=== PATIENT | female | born 1940 | race Caucasian/White ===

== ENCOUNTER 2016-12-23 11:57 | Emergency (ER) | payer OTHER ==
[~2016-12-23] VITALS: Ht 160 cm; Wt 68.9 kg
[2016-12-23] MEDS ORDERED: AMLODIPINE BESYL5 M1 PO (12:16)
[2016-12-23] MEDS ORDERED: LATANOPROST2.5 ML OPH (12:16)
[2016-12-23] MEDS ORDERED: VALSARTAN-HCTZ1 EACH PO (12:16)
[2016-12-23] MEDS ORDERED: TIMOLOL MALEATE5 M4 OD (12:16)
[2016-12-23] MEDS ORDERED: METFORMIN HCL850 M1 PO (12:17)
[2016-12-23] MEDS ORDERED: DORZOLAMIDE-TIM10 ML OPH (12:17)
[2016-12-23] MEDS ORDERED: LEVOTHYROXINE25 MCG PO (12:18)
--- NOTE | 2016-12-23 12:59 | RADIOLOGY REPORT ---
EXAMINATION: XR PORTABLE CHEST CLINICAL INFORMATION: Syncope COMPARISON: CXR from 11/25/2010 TECHNIQUE: Portable AP view of the chest was obtained. FINDINGS: Lungs are slightly hypoinflated. Minimal discoid atelectasis is present within the lateral aspect of the inferior lingula. Otherwise, lungs are unremarkable. There is no pulmonary consolidation, edema or pleural effusion. Cardiac silhouette is normal in size. The mediastinal and hilar contours are normal. There is atherosclerotic calcification of the aortic arch. No acute skeletal findings. IMPRESSION: Cardiac silhouette is normal in size. No acute cardiopulmonary disease compared to 11/25/2010.
[2016-12-23 13:08] LABS: ABSOLUTE BASOPHIL COUNT 0 /CUMM (0.0-0.2); ABSOLUTE EOSINOPHIL COUNT 0.5 /CUMM (0.0-0.7); ABSOLUTE LYMPH COUNT 0.7 /CUMM (1.2-3.4); ABSOLUTE MONOCYTE COUNT 0.5 /CUMM (0.10-0.60); BASOPHIL % 0.1 % (0.0-2.0); EOSINOPHIL % 5.5 % (0-5); HEMATOCRIT 41.8 % (37-47); MEAN CORPUSCULAR HGB 31.9 PG (27.0-31.0); MEAN CORPUSCULAR HGB CONC 34.4 G/DL (33.0-37.0); MEAN CORPUSCULAR VOLUME 92.8 FL (81.0-99.0); MEAN PLATELET VOLUME 6.6 FL (7.4-10.4); PLATELET COUNT 225 /CUMM (130-400); RED BLOOD CELL CT 4.51 /CUMM (4.20-5.40); WHITE BLOOD CELL COUNT 8.7 /CUMM (4.8-10.8)
[2016-12-23 13:15] LABS: GRANULOCYTE % 80.3 % (42.2-75.2)
--- NOTE | 2016-12-23 13:39 | ED AMS/SEIZURE/WEAK/DIZZY ---
History of Present Illness General Chief Complaint: Syncope and Near-Syncope Stated Complaint: NEAR SYNCOPE Source: patient, family, old records Exam Limitations: no limitations Vital Signs & Intake/Output Vital Signs & Intake/Output Vital Signs Date Time Temp Pulse Resp B/P Pulse O2 O2 Flow FiO2 Ox Delivery Rate 12/23 1415 97.0 72 18 103/54 96 Room Air 12/23 1209 98 Room Air 12/23 1201 96.0 70 18 95/52 96 Room Air Allergies Coded Allergies: Penicillins (THROAT SWELLING 12/23/16) Reconcile Medications Amlodipine Besylate 5 MG TABLET 1 TAB PO DAILY HEART (Reported) Dorzolamide HCl/Timolol Maleat (Dorzolamide-Timolol Eye Drops) 22.3 MG-6.8 MG/ML DROPS 1 GTT OPH BID EYE (Reported) Latanoprost 0.005 % DROPS 1 GTT OPH QPM EYE (Reported) Levothyroxine Sodium (Unknown Strength) TABLET (Unknown Dose) PO DAILY AC THYROID (Reported) Metformin HCl 850 MG TABLET 1 TAB PO BID DM (Reported) Sulfamethoxazole/Trimethoprim (Bactrim Ds Tablet) 800 MG-160 MG TABLET 1 TAB PO BID uti Timolol Maleate 0.5 % DROPS 1 GTT OPH QPM EYE (Reported) Valsartan/Hydrochlorothiazide (Valsartan-Hctz 80-12.5 MG Tab) 80 MG-12.5 MG TABLET 1 TAB PO DAILY HEART (Reported) Triage Note: 76 Y/O FEMALE BIBA FROM DOCTORS OFFICE ([facility], [place]) FOR EVAL OF GENERAL WEAKNESS, NAUSEA, RASH TO BILATERAL LOWER EXTREMITIES AND NEAR SYNCOPE X 1 WEEK. PT STATES SHE WAS TREATED FOR A UTI LAST WEEK BUT WE FEELING BETTER. A FEW DAYS AGO BEGAN NOT FEELING WELL WITH GENERAL WEAKNESS AND DECREASED APPETITE. TODAY NOTICED FINE RED RASH TO BILATERAL LOWER EXTREMITIES. STATES SHE HAS HAD A "LITTLE" COUGH. AFEBRILE. MD MELENDEZ INTO EVAL. Triage Nurses Notes Reviewed? yes Onset: Last week Duration: day(s):, continues in ED, waxing and waning Timing: recent history Injury Environment: home Severity: moderate No Modifying Factors: none LMP (ages 10-50): post menopausal : No Patient currently breastfeeds: No HPI: One week prior to admission patient was started on antibiotics for urinary tract infection subsequently developing generalized red itchy rash. She also complains of periumbilical pain into her right into her back sharp moderate to severe times associated with anorexia fatigue. She was at her PMDs office feeling very weak unable to stay awake during her exam. She denies fever chills chest pain cough shortness breath headache dysuria bleeding Past History Travel History Traveled to [place] past 21 day No Medical History Any Pertinent Medical History? 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 No Review of Systems Review of Systems Constitutional: Reports: see HPI, malaise, weakness. EENTM: Reports: no symptoms. Respiratory: Reports: no symptoms. Cardiovascular: Reports: no symptoms. GI: Reports: see HPI, abdominal pain. Genitourinary: Reports: see HPI, dysuria. Musculoskeletal: Reports: no symptoms. Skin: Reports: see HPI, rash. Neurological/Psychological: Reports: no symptoms. Hematologic/Endocrine: Reports: no symptoms. Immunologic/Allergic: Reports: no symptoms. All Other Systems: Reviewed and Negative Physical Exam Physical Exam General Appearance: well developed/nourished, alert, awake, anxious, moderate distress, obese Head: atraumatic, normal appearance Eyes: Bilateral: normal appearance, PERRL, EOMI. Ears, Nose, Throat: normal pharynx, normal ENT inspection Neck: normal inspection, supple, full range of motion, no midline tenderness Respiratory: normal breath sounds, chest non-tender, no respiratory distress, quiet respiration, lungs clear Cardiovascular: regular rate/rhythm, normal peripheral pulses, norml femoral pulses equa Peripheral Pulses: 4+ carotid (R), 4+ carotid (L) Gastrointestinal: normal bowel sounds, soft, no organomegaly, tenderness (Mild right lower quadrant) Back: normal inspection, normal range of motion Extremities: normal range of motion, no ligament instability Neurologic/Psych: no motor/sensory deficits, awake, alert, oriented x 3, normal gait, normal mood/affect, stevedore hold II-XII nml as tested Reflexes: 2+: bicep (R), bicep (L). Skin: rash (generalized papular) Lymphatic: no anterior cervical petra Core Measures ACS in differential dx? No CVA/TIA Diagnosis: No Severe Sepsis Present: No Septic Shock Present: No Progress Differential Diagnosis: dehydration, electrolyte imbalance, hypoxia, pneumonia, UTI/pyelo Plan of Care: Orders Procedure Date/time Status LACTIC ACID 12/23 1516 Active Add-on Test (ER Only) 12/23 1511 Active EKG 12/23 1302 Active TOTAL TRIODOTHYROXINE 12/23 1258 Complete FREE T4 12/23 1258 Complete MISTAKE 12/23 121 Active URINALYSIS 12/23 121 Complete TSH REFLEX 12/23 121 Complete TROPONIN LEVEL 12/23 121 Complete LACTIC ACID 12/23 121 Complete COMPREHENSIVE METABOLIC PANEL 12/23 1215 Complete CBC WITHOUT DIFFERENTIAL 12/23 1215 Complete Current Medications Sig/[place] Start time Last Medication Dose Stop Time Status Admin Potassium Chloride 40 MEQ ONCE ONE 12/23 1515 UNVr (Klor) 12/23 1516 Laboratory Tests 12/23/16 1427: Urinalysis LIGHT H, Urine Color KOURTNEY, Urine Clarity HAZY H, Urine pH 6.0, Ur Specific [place] >= 1.030, Urine Protein 100 H, Urine Ketones TRACE H, Urine Nitrite NEG, Urine Bilirubin NEG@ICTO, Urine Urobilinogen 1.0, Ur Leukocyte Esterase MOD H, Ur Microscopic SEDIMENT EXAMINED, Urine RBC 3-5, Urine WBC 50- 75 H, Ur Epithelial Cells MOD H, Hyaline Casts 1-3 H, Granular Casts 1-3 H, Urine Mucus MOD H, Urine Hemoglobin NEG, Urine Glucose NEG 12/23/16 1258: Anion Gap 11, Estimated GFR 44 L, BUN/Creatinine Ratio 16.7, Glucose 168 H, Lactic Acid 2.5 H, Calcium 8.5, Total Bilirubin 0.7, AST 43 H, ALT 62 H, Alkaline Phosphatase 72, Troponin I < 0.01, Total Protein 6.0 L, Albumin 3.2 L , Globulin 2.8, Albumin/Globulin Ratio 1.1, Free T4 1.68, Total T3 0.53 L, TSH &T3 &Free T4 Intrp 6.200 H, CBC w Diff NO MAN DIFF REQ, RBC 4.51, MCV 92.8, MCH 31.9 H, RDW 14.0, MPV 6.6 L, Gran % 80.3 H, Lymphocytes % 8.3 L, Monocytes % 5.8, Eosinophils % 5.5 H, Basophils % 0.1, Absolute Granulocytes 7.0 H, Absolute Lymphocytes 0.7 L, Absolute Monocytes 0.5, Absolute Eosinophils 0.5, Absolute Basophils 0, PUBS MCHC 34.4 Diagnostic Imaging: Viewed by Me: CT Scan. Discussed w/RAD: CT Scan. Radiology Impression: 1. Nonobstructing 8 mm renal calculus. 2. No evidence of appendicitis. 3. No evidence of diverticulitis. CXR Impression: no acute abnormality Initial ED EKG: normal axis, normal intervals, normal p-waves, normal QRS complex, normal sinus rhythm, no ST T wave changes Rhythm Strip: normal sinus rhythm Departure Departure Time of Disposition: 1510 Disposition: HOME OR SELF CARE Condition: Stable Clinical Impression Primary Impression: Dehydration syndrome Secondary Impressions: Adverse reaction to drug, Hypokalemia, Renal colic Referrals: RUEL JOHNSON,LINDA (PCP/Family) ARLETTE JOHNSON MD Departure Forms: Customer Survey General Discharge Information Prescriptions: Current Visit Scripts Sulfamethoxazole/Trimethoprim (Bactrim Ds Tablet) 1 TAB PO BID #20 TAB
--- NOTE | 2016-12-23 14:59 | CT SCAN REPORT ---
EXAMINATION: CT ABDOMEN AND PELVIS WITHOUT CONTRAST CLINICAL INFORMATION: Right lower quadrant pain. COMPARISON: 02/07/2015 TECHNIQUE: Multidetector volumetric imaging was performed from the superior aspect of the liver through the pubic symphysis. Sagittal and coronal reformatted images were obtained on the technologist's workstation. DLP: 290.12 mGy-cm FINDINGS: LUNG BASES: Bibasilar atelectasis is present. Coronary artery calcifications are present. LIVER, GALLBLADDER, AND BILIARY TREE: The liver is normal in size, shape, and attenuation. No focal hepatic lesion or biliary ductal dilatation is present. The gallbladder is unremarkable with no evidence of radiopaque gallstones, gallbladder wall thickening, or obvious pericholecystic inflammatory changes. PANCREAS: Unremarkable. SPLEEN: Unremarkable. ADRENAL GLANDS: Unremarkable. KIDNEYS AND URETERS: The kidneys are normal in size, shape, and attenuation. There is a nonobstructing 8 mm left upper pole lobulated calculus seen. No hydronephrosis, or hydroureter seen. No perinephric stranding. BLADDER: Underfilled. GASTROINTESTINAL TRACT: The small and large bowel are unremarkable. The appendix or appendiceal stump is seen. There is no evidence to suggest the presence of appendicitis. ABDOMINAL WALL: There is a tiny periumbilical hernia seen containing only fat. LYMPH NODES: Normal. VASCULAR: Unremarkable. PELVIC VISCERA: Unremarkable. OSSEOUS STRUCTURES: Degenerative changes noted in the thoracic spine. IMPRESSION: 1. Nonobstructing 8 mm renal calculus. 2. No evidence of appendicitis. 3. No evidence of diverticulitis.
[2016-12-23] MEDS ORDERED: BACTRIM DS TAB1 EACH PO (15:11)
[2016-12-23] MEDS ORDERED: IBUPROFEN600 M1 PO (15:15)
[2016-12-23] MEDS ORDERED: ULTRAM50 M1 PO (15:15)
[2016-12-23 15:48] VITALS: BP 102/54
[2017-01-04] MEDS ORDERED: LEVOXYL88 MCG PO (16:08)
[2017-01-04] MEDS ORDERED: LIPITOR10 M1 PO (16:09)
[2017-01-04] MEDS ORDERED: DORZOLAMIDE HCL10 M1 OS (16:11)
[2017-01-04] MEDS ORDERED: ASPIRIN325 M2 PO (16:12)
== END 2016-12-23 15:55 ==
LOC: ERH 11:57
PROVIDERS: Emergency Medicine
DX: E86.0 Dehydration (principal); T36.95XA Adverse effect of unspecified systemic antibiotic, initial encounter; E87.6 Hypokalemia; N23 Unspecified renal colic
CPT/HCPCS: 74176; 81001; 87086; 93005; 93010; 96361; 96374; 96375; J1200

== ENCOUNTER → 2017-01-05 | Day surgery (SDC) | payer OTHER ==
[~2017-01-05] VITALS: Ht 160 cm; Wt 68.9 kg
[~2017-01-05] MED LIST: AMLODIPINE BESYL5 M1 PO; ASPIRIN325 M2 PO; BACTRIM DS TAB1 EACH PO; DORZOLAMIDE HCL10 M1 OS; DORZOLAMIDE-TIM10 ML OPH; IBUPROFEN600 M1 PO; LATANOPROST2.5 ML OPH; LEVOTHYROXINE25 MCG PO; LEVOXYL88 MCG PO; LIPITOR10 M1 PO; METFORMIN HCL850 M1 PO; TIMOLOL MALEATE5 M4 OD; ULTRAM50 M1 PO; VALSARTAN-HCTZ1 EACH PO
--- NOTE | 2017-01-05 15:36 | Operative Report ---
Operative/Inv Procedure Report Surgery Date: 01/05/17 Name of Procedure: Left renal ESWL, fluoroscopy. Pre-Operative Diagnosis: Left renal stone Post-Operative Diagnosis: Same Estimated Blood Loss: none Surgeon/Pyrotechnics Press Tender: ARLETTE JOHNSON MD Anesthesia: moderate sedation Complications: None Operative/Procedure Note Note: The patient was taken to the operating room and placed on the ESWL table in supine position. With the patient awake and participating, timeout was performed to confirm correct identity, procedure, laterality, anesthesia, and other pertinent tressa-operative information. After adequate anesthesia, the patient was positioned so that the patient's left flank was positioned over the table cut-out, overlying the dome of the treatment head. Once the patient was adequately sedated, fluoroscopy, as well as Renal ultrasound was used to locate the LEFT renal stone. Renal US confirmed the presence of the stone which measured it to be approximately 8 mm UP stone. The stone was faintly visible with fluoroscopy. Renal US revealed, no hydronephrosis, and no solid tumor, and presence of the stone. The position of the stone was optimized by using fluoroscopy in AP and oblique views;placing the stone within the ESWL c-arm crosshairs. Once the stone's position was optimized, the LEFT renal E.S.W.L. was initiated at low energy level. After noting the patient's tolerance to the shockwaves, the intensitiy was ramped up to maximum level. At the end of the procedure, the left renal stone had dissintegrated. Of note, a total of 2500 shockwaves were delivered to the stone. The patient tolerated the ESWL procedures well, was awakened, then taken to recovery in satisfactory condition via stretcher. The patient was dischared home with pain medications, diet orders, and intructions to catch fragments by straining the urine. The patient to to have follow-up renal ultrasound and KUB in 1 to 2 weeks, prior to follow-up visit in my office. He will then proceed with metabolic stone work-up. Findings: 8mm left upper pole stone. No stone in the ureter on the left side. Discharge Disposition: Same Day Admissions CC: ARLETTE JOHNSON MD
== END ==
LOC: STS 03:14
DX: N20.0 Calculus of kidney (principal); E11.9 Type 2 diabetes mellitus without complications; Z79.84 Long term (current) use of oral hypoglycemic drugs; E03.9 Hypothyroidism, unspecified
CPT/HCPCS: J2250